=== PATIENT | male | born 1970 ===

== ENCOUNTER 2018-09-20 05:00 | Outpatient (CLI) | payer OTHER ==
[~2018-09-20] VITALS: Ht 190.5 cm; Wt 107.5 kg
[~2018-09-20 05:00] MED LIST: ELBA1TAB PO; IBUP-1984 PO; VANCOMYCIN 1,500MG inj. 1,500 MG in normal saline 250ml IV soln 280 ML IV ONE; ringers solution, lacted 1,000 ML IV SCH
[2018-09-20] MEDS ORDERED: cefazolin/dext.iso 2gm/100 ML IV ONE (05:30)
[2018-09-20] MEDS ORDERED: oxyCODONE SR 10mg (sust. release) tab -2 tabs (20mg) PO ONE (05:30)
[2018-09-20] MEDS ORDERED: famotidine 20mg tablet PO ONE (05:30)
[2018-09-20] MEDS ORDERED: vancomycin inj 1,500 MG in normal saline 300ml IV soln IV ONE (05:30)
[2018-09-20] MEDS ORDERED: VANCOMYCIN 1,500MG inj. 1,500 MG in normal saline 250ml IV soln 280 ML IV ONE (10:30)
== END 2018-09-20 05:05 | disposition home or self-care (01) ==
LOC: PRE-OP 05:00 → EEVIPCON 10:45 → EDSTATUS 12:30
PROVIDERS: ATTEND Orthopaedic Surgery
DX: M17.11 Unilateral primary osteoarthritis, right knee (principal); M25.561 Pain in right knee; Z53.9 Procedure and treatment not carried out, unspecified reason
CPT/HCPCS: J3370; J7050; J7120